=== PATIENT | female | born 1955 | race Caucasian/White ===

== ENCOUNTER 2022-02-23 18:32 | Emergency (ER) | payer BC, SELFPAY ==
--- NOTE | 2022-02-23 18:37 | ED.URI ---
HPI - URI/Sore Throat General Stated Complaint: cold fevers chest congestion Time Seen by Provider: 02/23/22 18:50 Source: patient and RN notes reviewed Mode of arrival: ambulatory Limitations: no limitations History of Present Illness HPI Narrative: 66-year-old female presents with concern for not feeling well since Sunday. Reports cough, headache, fatigue and general malaise that started on Sunday. Reports she took an at home COVID test Sunday, another 1 yesterday that were both negative. She reports low-grade temperature, productive cough. She reports she took a generic Sudafed. She called her doctor today who sent her in Curalate and Double the Donation. MD elicited complaint: cough, rhinorrhea and nasal congestion Related Data Home Medications Medication Instructions Recorded Confirmed B Complex-Vitamin B12 02/23/22 aspirin 81 mg tablet 81 mg PO DAILY 02/23/22 02/23/22 benzonatate 100 mg capsule cap PO 02/23/22 calcium citrate 200 mg tablet PO 02/23/22 [id number] D3 200 [id number] tablet (ADVANCED Calcium) omega-3 fatty acids 500 mg capsule mg 02/23/22 Allergies Allergy/AdvReac Type Severity Reaction Status Date / Time No Known Allergies Allergy Unknown Verified 12/28/15 06:23 Review of Systems Review of Systems: CONSTITUTIONAL: Reports malaise, fatigue, low-grade fever. EYES: Denies visual changes, redness, or discharge. ENT: Reports rhinorrhea, congestion. Denies sinus pain, otalgia and sore throat. CARDIOVASCULAR: Denies chest pain, palpitations, or edema. RESPIRATORY: Reports cough. Denies dyspnea. GASTROINTESTINAL: Denies abdominal pain, nausea, vomiting, diarrhea SKIN: Denies rash or itching. MUSCULOSKELETAL: Reports myalgia. NEUROLOGIC: Reports headache. All systems reviewed & are unremarkable except as noted in HPI and below PMFSH Past Medical History Medical History (Updated 02/23/22 @ 19:05 by Viridiana Henry NP) Retained orthopedic hardware Family History Family History (Updated 05/07/14 @ 07:13 by DOCTOR UNKNOWN) Sibling Family history of malignant neoplasm Family history of lung cancer Father Carcinoma of colon Mother Family history of lung cancer Social History Social History Smoking status: Former smoker Alcohol intake: current Comments At time of signature, agree with nursing past medical, surgical, social and family history. There is no relevant family history pertinent to the presenting complaint Exam Narrative: GENERAL: Nontoxic-appearing and in no acute distress. HEAD: Normocephalic EYES: PERRLA, conjunctivae clear ENT: Nares clear. Mucous membranes moist. NECK: Supple. No lymphadenopathy CHEST: No respiratory distress, speaks in full sentences. HEART: Tachycardic, irregular rate SKIN: Warm, dry, no rash. NEURO: Alert and oriented x3. PSYCH: Normal mood and affect Course Course Emergency Course: Patient is aware, understands and agrees to reasons to be transferred to the emergency room. EMS refused, explained risks Patient's son, who is a nurse, agrees to proceed directly to the emergency department. Portions of this record may have been created with voice recognition software Level of Care: Express Care Visit Vital Signs Vital signs: Reviewed. Transfer Transfered to: [facility] Transportation: Other Transfer rationale: New onset A. fib Accepting physician: Raudel CHEEMA - URI/Sore Throat ANETTE Narrative Medical decision making narrative: Exam findings warrant further evaluation the emergency department; patient is non-toxic appearing and is in no distress. Lab Data Attestation: I reviewed the patient's lab results. ECG Data EKG #1: ECG completion date: 02/23/22 ECG completion time: 18:55 Prior ECG tracings: not available for review Interpretation: Rate 115, QRS duration 96, QT 321, QTc 389. Atrial fibrillation with rapid ventricular response EKG Interpretation: atr
[2022-02-23 18:40] VITALS: BP 137/86; PULSE 98; RESP 16; TEMP 36.7; O2SAT 98
--- NOTE | 2022-02-23 18:47 | ECG_ITS ---
Measurements Intervals [place] Rate: 115 P: [place]: 0 QRS: 15 QRSD: 86 T: 43 QT: 321 QTc: 445 Interpretive Statements ATRIAL FIBRILLATION WITH RAPID VENTRICULAR RESPONSE ABNORMAL RHYTHM ECG NO PREVIOUS ECG AVAILABLE FOR COMPARISON Electronically Signed On 02-24-2022 14:33:14 CDT by Mitchell Julien M.D.
== END 2022-02-23 19:03 | disposition short-term general hospital (02) ==
PROVIDERS: Emergency Provider Nurse Practitioner; PCP Internal Medicine Infectious Disease
DX: I48.91 Unspecified atrial fibrillation (principal); Z87.891 Personal history of nicotine dependence; Z79.82 Long term (current) use of aspirin
CPT/HCPCS: 93005; 99213; G0463

== ENCOUNTER 2022-05-29 13:25 | Outpatient (CLI) | payer BC, SELFPAY ==
--- NOTE | ~2022-05-29 | CT_ITS ---
EXAMINATION: CT LE LT wo con DATE: 05/29/2022 13:52 INDICATION: Left knee primary osteoarthritis. TECHNIQUE: Computed tomography (CT) of the left lower limb was performed without intravenous contrast . Automated exposure control and iterative reconstruction technique were employed. The dose-length pr oduct was 1666.02 mGy-cm. COMPARISON: Left knee radiographs 05/17/22 FINDINGS: There is moderate left hip osteoarthritis. There is varus angulation at the knee. There is an old healed fracture of distal femoral metaphysis with lateral plate and screws. No acute fracture. There is severe tricompartmental osteoarthritis of the knee. There is a small knee joint effusion wi th loose bodies. IMPRESSION: 1. Severe left knee osteoarthritis. 2. Small left knee joint effusion with loose bodies. 3. Moderate left hip osteoarthritis. Reviewed, dictated and finalized at location A.
== END 2022-05-29 13:26 | disposition home or self-care (01) ==
PROVIDERS: PCP Internal Medicine Infectious Disease; Visit Provider Orthopaedic Surgery
DX: M17.12 Unilateral primary osteoarthritis, left knee (principal); Z96.9 Presence of functional implant, unspecified; M25.462 Effusion, left knee; M23.42 Loose body in knee, left knee; M16.12 Unilateral primary osteoarthritis, left hip
CPT/HCPCS: 73700

== ENCOUNTER 2022-05-31 13:40 | Outpatient (CLI) | payer BC, SELFPAY ==
[2022-05-31 14:11] LABS: Hematocrit 40.7 % (37.0-47.0); Hemoglobin 12.9 g/dL (12.0-15.0)
[2022-05-31 14:19] LABS: Albumin Level 4.3 g/dL (3.5-5.1); Estimated Glomerular Filt Rate > 60; Glucose 105 mg/dL (65-110)
[2022-05-31 14:20] LABS: Urine Cotinine NEGATIVE
[2022-05-31 14:27] LABS: Hemoglobin A1C 5.5 % (<5.7)
== END 2022-05-31 13:41 | disposition home or self-care (01) ==
PROVIDERS: PCP Internal Medicine Infectious Disease; Visit Provider Orthopaedic Surgery
DX: M17.12 Unilateral primary osteoarthritis, left knee (principal); Z79.899 Other long term (current) drug therapy
CPT/HCPCS: 80307; 82040; 82565; 82947; 83036; 85014; 85018

== ENCOUNTER 2022-07-24 09:43 | Outpatient (CLI) | payer BC, SELFPAY ==
[2022-07-24 11:14] LABS: Basophils Absolute Auto 0.1 K/mm3 (0.0-0.1); Basophils Percent Auto 0.6 % (0.2-1.2); Eosinophils Absolute Auto 0.2 K/mm3 (0-0.3); Hematocrit 46.3 % (37.0-47.0); Hemoglobin 14.7 g/dL (12.0-15.0); Immature Granulocyte Absolute 0.02 K/mm3 (0.00-0.031); Immature Granulocyte Percent A 0.3 % (0-0.5); Lymphocytes Absolute Auto 2.24 K/mm3 (0.9-3.2); Lymphocytes Percent Auto 28.4 % (18.3-44.2); Mean Corpuscular HGB Conc 31.7 g/dl (32-36); Mean Corpuscular Hemoglobin 31.2 pg (26-34); Mean Corpuscular Volume 98.3 fl (80-100); Mean Platelet Volume 10.7 fl (7.4-10.4); Monocytes Absolute Auto 0.8 K/mm3 (0.1-0.6); Monocytes Percent Auto 9.6 % (2.6-8.5); Neutrophils Absolute Auto 4.6 K/mm3 (1.3-6.7); Neutrophils Percent Auto 58.1 % (45.5-73.1); Platelet Count Result 263 k/mm3 (150-375); Red Blood Count 4.71 M/mm3 (4.2-5.4); Red Cell Distribution Width 12.9 % (11.5-14.5); White Blood Count 7.9 K/mm3 (4.5-10.0)
[2022-07-24 11:26] LABS: Albumin Level 4.5 g/dL (3.5-5.1); Estimated Glomerular Filt Rate > 60; Glucose 101 mg/dL (65-110)
[2022-07-24 11:28] LABS: Urine Cotinine NEGATIVE
[2022-07-24 11:33] LABS: Hemoglobin A1C 5.8 % (<5.7)
== END 2022-07-24 09:44 | disposition home or self-care (01) ==
LOC: ANHSURGERY 09:48
PROVIDERS: PCP Internal Medicine Infectious Disease; Visit Provider Orthopaedic Surgery
DX: M17.12 Unilateral primary osteoarthritis, left knee (principal); Z01.818 Encounter for other preprocedural examination
CPT/HCPCS: 80307; 82040; 82565; 82947; 83036; 85025; 87081

== ENCOUNTER 2022-08-17 00:47 | Day surgery (SDC) | payer BC, SELFPAY ==
--- NOTE | 2022-07-24 09:49 | PC.NURSE ---
Report to the Outpatient Waiting Room, entrance under the green pavilion located off [facility], at time __6:00am on date __08/17/22 . Planned Procedure Time: __7:30am . Time changes happen often and if your time is changed the preop area will call you the afternoon before. - You and your visitor will be asked to self-screen and do not enter if you have any COVID symptoms. - We encourage only one visitor and NO visitors under age 16 are allowed at this time. Your visitor will receive communication by the phone number that is given day of service. - The patient visitor is requested to social distance or may leave the building when not with patient due to restrictions. - A mask is required within the hospital. Patients may have clear liquids (water, carbonated beverages, clear teas, apple juice) until 3 hours prior to surgery with a maximum of 20 ounces. - No food from midnight until time of surgery Take the following medications with a SIP of water the morning of surgery: ____METOPROLOL Medications to discontinue per physician __HOLD ELIQUIS PER DR SÁNCHEZ, HOLD ALL VITAMINS/SUPPLEMENTS 3 DAYS PRE-OP- LAST DOSE 08/13/22 Please no make-up, nail moldovan, hairspray, perfume, deodorant, or body powder the day of surgery. No jewelry (including any body piercings) or valuables the day of surgery, leave them at home. Please take a shower or bath the night before, or the morning of, surgery with an antibacterial soap. Wear comfortable, loose fitting clothing. Children are encouraged to wear pajamas. - Jewelry must be removed prior to entering the operating room. Rings and piercings that are not removed may be cut off. - The hospital will not accept responsibility for valuables. - Please leave all valuables, including medications, at home the day of surgery. If you are going home after surgery, a licensed straight truck driver must drive you home. - NO public transportation without another adult. - We recommend that an adult stay with you for 24 hours following discharge. - We also recommend that you do not drive, make important decision, drink alcoholic beverages, or take any drugs that were not prescribed by your health care provider for at least 24 hours after your discharge time. Follow any additional instructions given to you from your surgeon. If you or anyone in your household have experienced Covid symptoms in the past week, please notify your surgeon or the nurse liaison at the phone number below for possible testing. Telephone instructions given to __patient and asked if any additional questions and then verbalized understanding. Patient advised to call surgeon office or pre surgery nurse liaison [phone] if any additional questions.
[2022-07-24 10:01] VITALS: BP 97/72; PULSE 84; RESP 16; TEMP 36.4; O2SAT 96; BMI 30.7
--- NOTE | 2022-08-16 11:00 | WPDANESEPPF ---
Anes - Initial Pre Proc Eval Procedure: Operation Date: 08/17/22 07:30 Proposed Procedures p Left Custom Total Knee Arthroplasty, - Ketan Rutledge MD s Removal Hardware Left Distal Femur - Ketan Rutledge MD Date/Time: 08/16/22 11:00 Surgeon: Ketan Rutledge MD Pre Op Diagnosis: primary oa left knee Patient Data Age: 67 Gender: F Height: 1.6 m Weight: 78.5 kg Last Vital Signs Temp 36.4 C L 07/24/22 10:01 Pulse 84 07/24/22 10:01 Resp 16 07/24/22 10:01 BP 97/72 L 07/24/22 10:01 Pulse Ox 96 07/24/22 10:01 O2 Del Method Room Air 07/24/22 10:01 Allergies Allergy/AdvReac Type Severity Reaction Status Date / Time No Known Allergies Allergy Unknown Verified 08/17/22 06:11 Home Medications Medication Instructions Recorded Confirmed Type apixaban 5 mg tablet (Eliquis) 5 mg PO BID 05/17/22 08/17/22 History atorvastatin 40 mg tablet 40 mg PO DAILY 05/17/22 08/17/22 History metoprolol tartrate 25 mg tablet 25 mg PO BID 05/17/22 08/17/22 History calcium carbonate 600 mg-vitamin 1,200 tablet PO DAILY 07/24/22 08/17/22 History D3 5 mcg (200 unit) tablet cyanocobalamin (vitamin B-12) 500 500 mcg PO DAILY 07/24/22 08/17/22 History mcg tablet Patient hx anesthesia problems: none Family hx anesthesia problems: none Results Review: All pre-operative results and documents have been reviewed as part of the pre-operative evaluation. 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 Retained orthopedic hardware Surgical History Surgical History History of open reduction and internal fixation (ORIF) procedure (~02/11/07) Lt Distal Femoral Fracture w/Locked Lateral Femoral Side Plate & Multiple Screws Family History Family History Sibling Family history of malignant neoplasm Family history of lung cancer Father Carcinoma of colon Mother Family history of lung cancer Social History Social History Smoking packs per day: 0.5 Smoking cigarettes per day: 10.0 Years smoked: 20 Smoking pack-years: 10.00 Smoking status: Former smoker Tobacco type: cigarettes Smoking end date: 01/08/22 Alcohol intake: current Substance use: never Lack of Transportation: No Lack of Food: Never True Current Housing: I Have Housing Concerned About Future Housing: No Difficulty Paying Gas/Electric Bills: No Difficulty Paying for Meds: No Currently Unemployed: No Education: Associate Degree Difficulty w/ Childcare or Family Care: No Living arrangements: with family Additional living arrangements comments: [facility] Spiritual care concerns: No Anes - Eval Final PreProcedure Day of Procedure 08/16/22 11:00 Patient weight: obese Heart: regular rate and rhythm Lungs: clear to auscultation Airway: Mallampati scale class II Neurological: alert and oriented Last oral intake: >/= 8 hours ASA classification: III Emergent: no Anesthetic plan: proceed Anesthesia type and monitoring: general LMA and standard monitoring Results Review: All pre-operative results and documents have been reviewed as part of the pre-operative evaluation. Informed Consent: The patient's anesthetic plan and its attendant risks and benefits were discussed with the patient/family/POA. Questions were solicited and answers provided to the satisfaction of the patient/family/POA.
[2022-08-17] VITALS (17 sets, daily range): BP systolic 92–128; BP diastolic 63–80; PULSE 86–114; RESP 10–18; TEMP 36.1–37.1; O2SAT 87–99
--- NOTE | ~2022-08-17 | XR_ITS ---
XR knee LT 2V DATE: 08/17/2022 11:38 INDICATION: Right total knee arthroplasty TECHNIQUE: Postoperative portable AP and crosstable lateral views of left knee COMPARISON: 05/17/2022 left knee FINDINGS: There is removal of multiple transverse screws through the femoral condyles and lateral dis rnady femoral plate since 05/17/2022. The lateral plate remains, with 4 proximal transverse through screw s. Old healed fracture deformity of the distal femoral diametaphyseal area is noted. Since 05/17/2022 there is left total knee arthroplasty with patellar resurfacing. There is expected sub cutaneous and intra-articular gas and proximal tibial intramedullary gas postoperatively. IMPRESSION: Removal of multiple transverse through screws at medial and femoral condyles and subseque nt placement of left total knee arthroplasty Reviewed, dictated and finalized at location B. [place]YEE RELATIONS REPRESENTATIVE IMPRESSION: Removal of multiple transverse through screws at medial and femoral condyles and subsequent placement of left total knee arthroplasty
--- NOTE | ~2022-08-17 | XR_ITS ---
XR surgery orthopedic DATE: 08/17/2022 10:54 INDICATION: Fluoroscopy for left knee hardware removal TECHNIQUE: 6.0 seconds fluoroscopy time 2.59 mGy COMPARISON: 08/17/2022 portable postoperative examination FINDINGS: Single AP exposures reveals plate with transverse screws along the distal femur and right f emoral articular prosthesis. IMPRESSION: Limited examination Reviewed, dictated and finalized at Location A. Reviewed, dictated and finalized at location B. E BURNER IMPRESSION: Limited examination
[2022-08-17] MEDS: ACETAMINOPHEN 500 MG TABLET 1000 MG PO (06:13)
[2022-08-17] MEDS: LACTATED RINGERS 1,000 ML 30 ML IV CONT (06:34)
--- NOTE | 2022-08-17 06:53 | SUR.PREOP ---
Discussed with patient and regarding possible delay getting to room upstairs. Discussed what to expect to be done during that delay. Voices understanding.
[2022-08-17] MEDS: TRANEXAMIC ACID 1,000MG/ISO100 1,000 MG/100 ML BAG 200 MG IVPB (07:01)
--- NOTE | 2022-08-17 07:21 | WPDHPUPDATE1 ---
History and Physical Update Update Date/Time: 08/17/22 07:21 History and Physical has been reviewed, including an updated exam of the patient. There are NO changes in the patient's condition. Risks, benefits, and alternatives have been discussed and questions answered. Patient agrees to proceed with procedure.
[2022-08-17] MEDS: ceFAZolin 2 GM/D5W 50 ML 2 GM/50 ML BAG IVPB ×3 (07:30→23:57)
[2022-08-17] MEDS: GENTAMICIN BONE CEMENT REFOBACIN 1 EACH TOPICAL (08:31)
--- NOTE | 2022-08-17 13:43 | P.OP_ITS ---
Procedure Note - Detailed Date of Procedure 08/17/22 Pre-op Diagnosis 1. Osteoarthritis left knee. 2. Retained hardware left distal femur locking plate and screws. Post-op Diagnosis Same Procedure Performed 1. Total knee arthroplasty left knee. 2. Removal of multiple distal locking screws. Surgeon Ketan Rutledge MD Sales Representative Education Courses Mercy Cardenas PA-C Anesthesia General Indications Severe progressive arthritis. History of MCL tear and ACL tear during her youth. Treated with open surgery with an incision medial. Subsequent posttraumatic arthritis. Fifteen years ago fell suffering a distal femur fracture. Treated with ORIF with lateral locking plate. Now progressive pain and dysfunction. Findings The posterior stabilized knee fit very nicely according to the preoperative CT based 3D planning system. Significant medial release was required. Bone quality was satisfactory. 20 mm stem extension used on the tibia. Description of Procedure Preoperative antibiotics were given. A general anesthetic was administered. Leg was prepped and draped in the usual sterile fashion. Longitudinal incision was created over the anterior knee. A trivector approach to the knee was performed. A large medial release was taken. The patella surface was resected. The F1 jig was placed on the femur. The distal cut was taken. Resection matched the preoperative plan. The distal screws were impinging on the cut as well as the guide pins. The screws were thus removed. The F3 jig was applied followed by the F4 jig. The box cut was taken. Posterior compartment was cleaned. Osteophytes were removed. The tibia guide was placed and resection carried out according to the plan. Slight varus was placed in the knee later after the medial compartment was found to be quite tight. She did have significant preoperative varus. Balancing was carefully performed with the extension block as well as trialing. Meniscal remnants and PCL remnants were removed. Slight needle release was also performed on the tight MCL. The tibia was prepared. The knee was copiously irrigated with pulsatile lavage throughout the procedure. The real implants were cemented into position. The lateral plate was slightly prominent along side the femoral component. However, the screws could not be removed as they were fairly soft titanium and were cold welded and stripped. The real 10 mm polyethylene liner was placed. Range of motion was excellent. Balancing was very good. 1 mm gap medial and 2-3 lateral. Patellar tracking was excellent. The wounds were closed with 1. Vicryl interrupted suture and 2. Stratafix suture on the anterior wound. The lateral wound was closed with interrupted 3-0 Monocryl and running 4-0 Monocryl. The anterior wound was closed with running 2-0 Stratafix and 3-0 Stratafix. The Aqua Mantis was used throughout the advised to assist with hemostasis. Estimated blood loss was 50 mL Steri-Strips were placed on the skin. Mepilex dressings applied. Tourniquet was released after cementation. Soft wrap was applied with elastic wrap. Patient was extubated and brought to the recovery room in stable condition. There were no complications. Implants [employer] Imprint semi-custom. Posterior stabilized. 10 mm polyethylene insert. 38 mm oval patella. Estimated Blood Loss 50 Packing No Pathology None sent Complications No immediate complications Disposition PACU [facility] Billing Surgery - Charge Forward: Surgery Billing
--- NOTE | 2022-08-17 13:58 | SUR.PHASEI ---
1230 PT MEETS ANESTHESIA DISCHARGE CRITERIA. NO ROOM AVAILABLE. ON HOLD.
--- NOTE | 2022-08-17 14:05 | ADMGEN ---
This patient, Savanah Karimi, was admitted to 2 Medical Room 254-01. Patient/family oriented to hospital policies and general routines including ID bracelet, bed and alarms, visiting hours, pain management, procedures, bathroom and other care routines, personal items, smoking policy, room service/diet, and visiting hours. Information on how to activate the Rapid Response Team has been discussed. Patient/Family are encouraged to report perceived risks to care and to ask questions if they do not understand what they are told or what they should do.
--- NOTE | 2022-08-17 14:34 | PCOTNOTE ---
Attempted to see patient [id number]. Currently with general admission.
[2022-08-17] MEDS: ASPIRIN 81 MG ENTERIC TABLET PO (16:33)
[2022-08-17] MEDS: ATORVASTATIN 40 MG TABLET PO (16:33)
[2022-08-17] MEDS: SENNA/DOCUSATE SODIUM TABLET 2 TAB PO (17:03)
[2022-08-17] MEDS: METOPROLOL TARTRATE 25 MG TABLET PO (20:26)
[2022-08-17] MEDS: FAMOTIDINE 20 MG TABLET PO (20:26)
[2022-08-18 00:56] VITALS: BP 106/63; PULSE 89; RESP 16; TEMP 36.5; O2SAT 94
[2022-08-18 05:34] VITALS: BP 100/64; PULSE 73; RESP 16; TEMP 36.6; O2SAT 95
[2022-08-18 06:04] LABS: Basophils Percent Auto 0.3 % (0.2-1.2); Eosinophils Percent Auto 0.1 % (0-4.4); Hematocrit 33.9 % (37.0-47.0); Hemoglobin 10.5 g/dL (12.0-15.0); Immature Granulocyte Absolute 0.06 K/mm3 (0.00-0.031); Immature Granulocyte Percent A 0.4 % (0-0.5); Lymphocytes Absolute Auto 1.77 K/mm3 (0.9-3.2); Lymphocytes Percent Auto 12.2 % (18.3-44.2); Mean Corpuscular Hemoglobin 30.9 pg (26-34); Mean Corpuscular Volume 99.7 fl (80-100); Monocytes Absolute Auto 1.3 K/mm3 (0.1-0.6); Neutrophils Absolute Auto 11.3 K/mm3 (1.3-6.7); Platelet Count Result 263 k/mm3 (150-375); Red Cell Distribution Width 13.8 % (11.5-14.5); White Blood Count 14.5 K/mm3 (4.5-10.0)
[2022-08-18 06:15] LABS: Anion Gap 6 mmol/L (8-16); Blood Urea Nitrogen 13 mg/dL (7-17); Calcium 8.3 mg/dL (8.4-10.2); Carbon Dioxide 25 mmol/L (22-30); Chloride 106 mmol/L (98-107); Estimated CRCL calculation 58 ml/min; Estimated Glomerular Filt Rate > 60; Glucose 97 mg/dL (65-110); Potassium 3.9 mmol/L (3.4-5.0); Sodium 137 mmol/L (137-145)
[2022-08-18] MEDS: traMADol HCL (*CRX) 50 MG TABLET PO (08:27)
[2022-08-18 08:28] VITALS: PULSE 78
[2022-08-18] MEDS: polyethylene glycoL 3350 17 GM POWD.PACK PO (08:28)
[2022-08-18] MEDS: FAMOTIDINE 20 MG TABLET PO (08:28)
[2022-08-18] MEDS: SENNA/DOCUSATE SODIUM TABLET 2 TAB PO (08:28)
[2022-08-18] MEDS: predniSONE 5 MG TABLET PO (08:28)
[2022-08-18] MEDS: METOPROLOL TARTRATE 25 MG TABLET PO (08:28)
[2022-08-18] MEDS: ASPIRIN 81 MG ENTERIC TABLET PO (08:28)
--- NOTE | 2022-08-18 08:29 | PM.DS ---
DS: Admitting Diagnosis Discharge Date 08/18/22 Admitting Diagnosis OA knee Left DS: Discharge Diagnosis Discharge Diagnosis (1) Status post total left knee replacement: Code(s): Z96.652 - Presence of left artificial knee joint Status: Acute Assessment and Plan: Postop day 1: Left total knee arthroplasty. Patient tolerated procedure well. No complications. Pain manageable with pain medication. No numbness or tingling. We had a lengthy discussion regarding postoperative wound care, limitations, expectations, and exercises. Patient shows good understanding. She has had initial physical therapy and is tolerating it well. DVT prophylaxis: 81 mg baby aspirin b.i.d. for 14 days. Pain medication: Tramadol. Prednisone. Antibiotic: Keflex BID 10 days. Patient has followup appointment with Dr. Rutledge in 3 weeks. DS: Summary Hospital Course Reason for hospitalization: Total knee arthroplasty Hospital Course: Patient tolerated procedure well. Has had initial PT/OT. Status at Discharge Functional status at discharge: uses cane/walker Overall status at discharge: patient is progressing back to baseline Time Spent with Patient Time attestation: Total time spent providing and/or coordinating discharge services: Exam Narrative: 67-year-old overweight female. Resting comfortably in chair. Alert and oriented x3. No acute distress. Wearing compression socks bilaterally. Dressing dry and intact without drainage. Mild swelling. No ecchymosis. No erythema. No hematoma. Range of motion limited due to pain. Calf nontender. Neurologic status intact. No varicosities. Distal pulses palpable. DS: Data Data Completed and Pending Labs on day of discharge: Labs from last 24 hours 08/18/22 08/18/22 05:32 05:32 WBC 14.5 H RBC 3.40 L Hgb 10.5 L D Hct 33.9 L MCV 99.7 MCH 30.9 MCHC 31.0 L RDW 13.8 Plt Count 263 MPV 11.0 H Immature Gran % (Auto) 0.4 Neut % (Auto) 78.0 H Lymph % (Auto) 12.2 L Kle[place] % (Auto) 9.0 H Eos % (Auto) 0.1 Baso % (Auto) 0.3 Lymph # (Auto) 1.77 [place] # (Auto) 1.3 H Eos # (Auto) 0.0 Baso # (Auto) 0.0 Abs Immat Gran (auto) 0.06 H Absolute Neuts (auto) 11.3 H Absolute Nucleated RBC 0.0 Nucleated RBC % 0.0 Sodium 137 Potassium 3.9 Chloride 106 Carbon Dioxide 25 Anion Gap 6 L BUN 13 Creatinine 0.80 Estim Creat Clear Calc 58 Estimated GFR > 60 Glucose 97 Calcium 8.3 L Discharge Plan Discharge Patient Disposition: Home, Self-Care Discharge Instructions: See green instruction sheets Patient Instructions: Apixaban (By mouth) Stand Alone Forms: General Discharge Instructions Follow-up/Referrals: Mercy Cardenas PA [Physician Inbound Call Center Representative] - Discharge Medications: New prednisone 5 mg tablet 5 mg PO DAILY 21 Days Qty: 21 0RF aspirin 81 mg tablet,delayed release (DR/EC) 81 mg PO BID 6 Days Qty: 12 0RF cephalexin 500 mg capsule 500 mg PO BID 10 Days Qty: 20 0RF Rx Instructions: Take twice a day for 10 days. tramadol 50 mg tablet 50 mg PO Q4H MDD 6 PRN (Reason: pain) Qty: 40 0RF Continued metoprolol tartrate 25 mg tablet 25 mg PO BID atorvastatin 40 mg tablet 40 mg PO DAILY calcium carbonate-vitamin D3 600 mg-5 mcg (200 unit) Tablet 1,200 tablet PO DAILY Rx Instructions: CALCIUM 1200MG W/ 25 MCG VIT D3 cyanocobalamin (vitamin B-12) 500 mcg Tablet 500 mcg PO DAILY Held Eliquis 5 mg tablet 5 mg PO BID Hold Instructions: Resume on 08/24/22. Hold for 1 week.
[2022-08-18] MEDS: ceFAZolin 2 GM/D5W 50 ML 2 GM/50 ML BAG IVPB (08:30)
[2022-08-18 08:35] VITALS: BP 100/59; PULSE 78; RESP 18; TEMP 36.6; O2SAT 94
[2022-08-18] MEDS: ATORVASTATIN 40 MG TABLET PO (09:06)
--- NOTE | 2022-08-18 10:38 | WPDANESPN ---
Anes - Prog Note Post-Op Date/Time: 08/18/22 09:42 Cardiovascular status: normal Respiratory status: normal Airway patency: baseline Mental status: baseline Post-Op hydration status: normal Vital Signs: Last Vital Signs Temp 98 F 08/18/22 08:35 Pulse 78 08/18/22 08:35 Resp 18 08/18/22 08:35 BP 100/59 L 08/18/22 08:35 Pulse Ox 94 08/18/22 08:35 O2 Del Method Room Air 08/18/22 08:10 O2 Flow Rate 2 08/17/22 16:03 Pain Score (VAS): 0 I/O: Intake & Output 08/17/22 08/18/22 08/18/22 23:59 07:59 15:59 Intake Total 370 800 260 Balance 370 800 260 Laboratory Tests 08/18/22 05:32 08/18/22 05:32 08/18/22 08/18/22 05:32 05:32 WBC 14.5 H RBC 3.40 L Hgb 10.5 L D Hct 33.9 L MCV 99.7 MCH 30.9 MCHC 31.0 L RDW 13.8 Plt Count 263 MPV 11.0 H Immature Gran % (Auto) 0.4 Neut % (Auto) 78.0 H Lymph % (Auto) 12.2 L [place] % (Auto) 9.0 H Eos % (Auto) 0.1 Baso % (Auto) 0.3 Lymph # (Auto) 1.77 [place] # (Auto) 1.3 H Eos # (Auto) 0.0 Baso # (Auto) 0.0 Abs Immat Gran (auto) 0.06 H Absolute Neuts (auto) 11.3 H Absolute Nucleated RBC 0.0 Nucleated RBC % 0.0 Sodium 137 Potassium 3.9 Chloride 106 Carbon Dioxide 25 Anion Gap 6 L BUN 13 Creatinine 0.80 Estim Creat Clear Calc 58 Estimated GFR > 60 Glucose 97 Calcium 8.3 L Post-procedural complaints: none Patient Feedback: Patient satisfied with anesthetic care. Other Findings: no PNB, denies all pain.
== END 2022-08-18 11:43 | disposition home or self-care (01) ==
LOC: ANHSURGERY 09:38 → ANH2MED 14:01
PROVIDERS: Physician Assistant Surgical; PCP Internal Medicine Infectious Disease; Visit Provider Orthopaedic Surgery
PROC: (CPT 27447; principal; 2022-08-17 07:30)
PROC: (CPT 27447; 2022-08-17 07:30)
DX: M17.12 Unilateral primary osteoarthritis, left knee (principal); I48.91 Unspecified atrial fibrillation; I10 Essential (primary) hypertension; E78.5 Hyperlipidemia, unspecified; Z79.01 Long term (current) use of anticoagulants; Z87.891 Personal history of nicotine dependence; E66.9 Obesity, unspecified; Z68.30 Body mass index [BMI] 30.0-30.9, adult
CPT/HCPCS: 27447; 36415; 73560; 80048; 85025; 86850; 86900; 86901; 97110; 97116; 97161; 97165; 97530; 97535; 99199; A9270; C1713; C1776; J0131; J0171; J0690; J1100; J1170; J1885; J2250; J2270; J2405; J2704; J2795; J3010; J7120; J7512

== ENCOUNTER 2023-06-08 10:17 | Outpatient (CLI) | payer OTHER, SELFPAY ==
--- NOTE | 2023-06-08 10:27 | ECG_ITS ---
Measurements Intervals Blanca Rate: 67 P: MN: 0 QRS: 29 QRSD: 90 T: 0 QT: 421 QTc: 448 Interpretive Statements ATRIAL FIBRILLATION WITH NORMAL VENTRICULAR RESPONSE BORDERLINE T WAVE ABNORMALITY- INFERIOR LEADS BASELINE ARTIFACT- I, II, III, AVR, AVL ABNORMAL ECG COMPARED TO ECG 02/23/2022 18:55:49 HEART RATE HAS DECREASED Electronically Signed On 06-08-2023 10:44:35 CDT by Jonathon Macedo D.O.
== END 2023-06-08 10:18 | disposition home or self-care (01) ==
LOC: ANHSURGERY 10:22
PROVIDERS: PCP Internal Medicine Infectious Disease; Visit Provider Orthopaedic Surgery
DX: E78.00 Pure hypercholesterolemia, unspecified (principal); Z01.818 Encounter for other preprocedural examination; I48.91 Unspecified atrial fibrillation
CPT/HCPCS: 93005

== ENCOUNTER 2023-06-14 00:16 | Day surgery (SDC) | payer OTHER, SELFPAY ==
--- NOTE | 2023-06-01 14:41 | PC.NURSE ---
Report to the Outpatient Waiting Room, entrance under the green pavilion located off [facility], at time _0830 on date ___06/14/23____. Planned Procedure Time: __1030 . Time changes happen often and if your time is changed the preop area will call you the afternoon before. - You and your visitor will be asked to self-screen and do not enter if you have any COVID symptoms. - A mask is optional within the hospital at this time. Patients may have clear liquids (water, carbonated beverages, clear teas, apple juice) until 3 hours prior to surgery with a maximum of 20 ounces. - No food from midnight until time of surgery - Infants may have breast milk until 4 hours before surgery, infant formula 6 hours prior to surgery. - Children will be allowed to drink immediately following surgery. If applicable, please bring a bottle or sippy cup to assist with drinking. Juice, water, soda, and popsicles are readily available. For infants on formula, please bring formula the day of surgery. Pacifiers are allowed. Take the following medications with a SIP of water the morning of surgery: __METOPROLOL DO NOT STOP ANY OF YOUR OTHER PRESCRIPTION MEDICATIONS PRIOR TO SURGERY ?EXCEPT THE FOLLOWING Medications to discontinue per physician __PT STATES HOLD ELIQUIS 3 DAYS PRE OP PER DR SÁNCHEZ. LAST DOSE 06/10/23. ALL VITAMINS AND SUPPLEMENTS 3 DAYS PRE OP.LAST DOSE 06/10/23 Please no make-up, nail st helenian, hairspray, perfume, deodorant, or body powder the day of surgery. No jewelry (including any body piercings) or valuables the day of surgery, leave them at home. Please take a shower or bath the night before, or the morning of, surgery with an antibacterial soap. Wear comfortable, loose fitting clothing. Children are encouraged to wear pajamas. - Jewelry must be removed prior to entering the operating room. Rings and piercings that are not removed may be cut off. - The hospital will not accept responsibility for valuables. - Please leave all valuables, including medications, at home the day of surgery. If you are going home after surgery, a licensed limb driver must drive you home. - NO public transportation without another adult if you receive anesthesia. - We recommend that an adult stay with you for 24 hours following discharge. - We also recommend that you do not drive, make important decision, drink alcoholic beverages, or take any drugs that were not prescribed by your health care provider for at least 24 hours after your discharge time. For Pediatric surgeries, we recommend two adults accompany the child home. Follow any additional instructions given to you from your surgeon. If you or anyone in your household have experienced Covid symptoms in the past week, please notify your surgeon or the nurse liaison at the phone number below for possible testing. Telephone instructions given to __PATIENT and asked if any additional questions and then verbalized understanding. Patient advised to call surgeon office or pre surgery nurse liaison [phone] if any additional questions.
[2023-06-01 14:51] VITALS: BMI 27.8
[2023-06-14] VITALS (8 sets, daily range): BP systolic 128–142; BP diastolic 68–92; PULSE 78–93; RESP 12–18; TEMP 36.6–36.8; O2SAT 92–100
--- NOTE | 2023-06-14 07:06 | WPDHPUPDATE1 ---
History and Physical Update Update Date/Time: 06/14/23 07:06 History and Physical has been reviewed, including an updated exam of the patient. There are NO changes in the patient's condition. Risks, benefits, and alternatives have been discussed and questions answered. Patient agrees to proceed with procedure.
[2023-06-14] MEDS: LACTATED RINGERS 1,000 ML 30 ML IV CONT ×2 (09:02→11:20)
[2023-06-14] MEDS: KETOROLAC 15 MG/ML VIAL (*BKC) IV PUSH (09:02)
[2023-06-14] MEDS: ACETAMINOPHEN 500 MG TABLET 1000 MG PO (09:03)
--- NOTE | 2023-06-14 09:08 | WPDANESEPPF ---
Anes - Initial Pre Proc Eval Procedure: Operation Date: 06/14/23 10:30 Proposed Procedures p Left Knee Arthroscopy, Peripatellar Debridement - Ketan Rutledge MD Date/Time: 06/14/23 09:08 Surgeon: Ketan Rutledge MD Pre Op Diagnosis: left knee patellar clunk Patient Data Age: 68 Gender: F Height: 1.6 m Weight: 71.25 kg Allergies Allergy/AdvReac Type Severity Reaction Status Date / Time No Known Allergies Allergy Unknown Verified 06/01/23 14:28 Home Medications Medication Instructions Recorded Confirmed Type apixaban 5 mg tablet (Eliquis) 5 mg PO BID 05/17/22 06/01/23 History atorvastatin 40 mg tablet 40 mg PO DAILY 05/17/22 06/01/23 History metoprolol tartrate 25 mg tablet 25 mg PO BID 05/17/22 06/01/23 History calcium carbonate 600 mg-vitamin 1 tablet PO DAILY 06/01/23 06/01/23 History D3 10 mcg (400 unit) tablet (Calcium 600 + D(3)) cyanocobalamin (vitamin B-12) 500 500 mcg PO DAILY 06/01/23 06/01/23 History mcg tablet Patient hx anesthesia problems: none Family hx anesthesia problems: none Results Review: All pre-operative results and documents have been reviewed as part of the pre-operative evaluation. 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 Retained orthopedic hardware Surgical History Surgical History History of open reduction and internal fixation (ORIF) procedure (~02/11/07) Lt Distal Femoral Fracture w/Locked Lateral Femoral Side Plate & Multiple Screws History of total left knee replacement (~08/17/22) Conformis and hard lyles removal Family History Family History Sibling Family history of malignant neoplasm Family history of lung cancer Father Carcinoma of colon Mother Family history of lung cancer Social History Social History Smoking packs per day: 0.5 Smoking cigarettes per day: 10.0 Years smoked: 20 Smoking pack-years: 10.00 Smoking status: Former smoker Tobacco type: cigarettes Smoking end date: 01/08/22 Alcohol intake: never Substance use: never Substance use type: does not use Lack of Transportation: No Lack of Food: Never True Current Housing: I Have Housing Concerned About Future Housing: No Difficulty Paying Gas/Electric Bills: No Difficulty Paying for Meds: No Currently Unemployed: No Education: Associate Degree Difficulty w/ Childcare or Family Care: No Living arrangements: with family Additional living arrangements comments: [facility] Spiritual care concerns: No Anes - Eval Final PreProcedure Day of Procedure 06/14/23 09:08 Patient weight: overweight Heart: regular rate and rhythm Lungs: clear to auscultation Airway: Mallampati scale class II Neurological: alert and oriented Last oral intake: >/= 8 hours ASA classification: III Emergent: no Anesthetic plan: proceed Anesthesia type and monitoring: general LMA and standard monitoring Results Review: All pre-operative results and documents have been reviewed as part of the pre-operative evaluation. Informed Consent: The patient's anesthetic plan and its attendant risks and benefits were discussed with the patient/family/POA. Questions were solicited and answers provided to the satisfaction of the patient/family/POA.
[2023-06-14] MEDS: ceFAZolin 2 GM/D5W 50 ML 2 GM/50 ML BAG IVPB (10:02)
[2023-06-14] MEDS: BUPIVACAINE/EPINEPHRINE 0.5% 50 ML VIAL 30 ML INFILTRATE (10:25)
--- NOTE | 2023-06-14 12:15 | P.OP_ITS ---
Procedure Note - Detailed Date of Procedure 06/14/23 Pre-op Diagnosis Left knee patellar clunk syndrome, status post total knee arthroplasty. Post-op Diagnosis Same Procedure Performed Arthroscopic peripatellar debridement, left knee. Surgeon Ketan Rutledge MD Anesthesia General Findings Notable hypertrophic synovial scar around the patella both inferiorly and superiorly. Also to some degree medial and lateral. Some tissue of concern near the lateral plate as an another source of crepitus. All of these areas were debrided with the arthroscopic shaver as well as the radiofrequency probe. Small area of scar in the medial gutter was also excised. Description of Procedure The patient was identified and the surgical site confirmed and signed in the preoperative holding area. Antibiotics were started per protocol. She was brought to the operative room and transferred to the OR table. A general anesthetic was administered. Supine position with the operative lower extremity position in the leg hutson after placement of a well padded tourniquet. The leg support was lowered and the contralateral limb was supported with a soft bolster. The knee was prepped and draped in the usual sterile fashion. A time- out was performed. The portal sites were marked and infiltrated with 0.5% Marcaine 20 mL. The limb was exsanguinated and the tourniquet inflated to 300 mL Hg. Standard inferolateral and inferomedial portals were established. Inflow was obtained with the saline pump. The camera was introduced. Diagnostic inspection of the joint was accomplished. Medially was evident that hypertrophic tissue existed in the inferior pole as well as the superior pole of the patella. Both these areas appear to be at risk for impinging on the intercondylar notch. This tissue was meticulously debrided rolls well as the medial and lateral tissues around the patella. The radiofrequency probe was then used to stabilize and further debride as necessary. Additional tissue the medial gutter as well as the lateral gutter was debrided. The arthroscopic instruments were removed. The tourniquet released and wounds closed with subcutaneous 4-0 Monocryl absorbable suture. Steri strips and a sterile dressing were applied. A light elastic wrap was placed. The patient was extubated and brought to the recovery room in stable condition. Estimated Blood Loss 5 Drains No Complications No immediate complications Condition Stable Disposition PACU [facility] Billing Surgery - Charge Forward: Surgery Billing
== END 2023-06-14 13:04 | disposition home or self-care (01) ==
PROVIDERS: PCP Internal Medicine Infectious Disease; Visit Provider Orthopaedic Surgery
PROC: (CPT 29870; principal; 2023-06-14 10:30)
DX: M25.862 Other specified joint disorders, left knee (principal); Z96.652 Presence of left artificial knee joint; I48.91 Unspecified atrial fibrillation; I10 Essential (primary) hypertension; E78.5 Hyperlipidemia, unspecified; Z87.891 Personal history of nicotine dependence; Z79.01 Long term (current) use of anticoagulants
CPT/HCPCS: 29876; 93005; A9270; J0690; J1100; J1170; J1885; J2405; J2704; J3010; J7120